=== PATIENT | male | born 1960 | race Caucasian/White ===

== ENCOUNTER 2024-06-09 06:29 | Day surgery (SDC) | payer MEDICARE, OTHER ==
[~2024-06-09] VITALS: Ht 170.2 cm; Wt 85.9 kg
[2024-06-09] MEDS ORDERED: SODIUM CHLORIDE 0.9% 1,000 ML ONE (07:44)
[2024-06-09] MEDS: SODIUM CHLORIDE 0.9% 1,000 ML IV ONE (08:43)
[2024-06-09] MEDS ORDERED: MIDAZOLAM HCL 2 MG/2 ML VIAL ONE (08:59)
[2024-06-09] MEDS ORDERED: FentaNYL CITRATE PF 100 MCG/2 ML VIAL ONE (09:01)
[2024-06-09 09:45] VITALS: PULSE 70; RESP 16; O2SAT 99
[2024-06-09] MEDS ORDERED: MethylPREDNISolone SOD SUCC 125 MG/2 ML VIAL ONE (10:15)
[2024-06-09] MEDS: MethylPREDNISolone SOD SUCC 125 MG/2 ML VIAL IVP ONE (10:24)
[2024-06-09] MEDS ORDERED: LIDOCAINE 4% 50 ML SOLUTION ONE (12:00)
[2024-06-09] MEDS ORDERED: BENZOCAINE 20% 50 MCG/SPRAY 57 GM ONE (12:00)
[2024-06-09] MEDS ORDERED: LIDOCAINE 2% 11 ML JELLY ONE (12:00)
== END 2024-06-09 13:30 | disposition home or self-care (01) ==
LOC: SURGERY 06:29
PROVIDERS: ATTEND Internal Medicine Critical Care Medicine
DX: R05.3 Chronic cough (principal); R06.2 Wheezing; R49.0 Dysphonia; R04.2 Hemoptysis; R06.1 Stridor; B37.0 Candidal stomatitis; R60.0 Localized edema; I49.3 Ventricular premature depolarization; R94.31 Abnormal electrocardiogram [ECG] [EKG]; J98.09 Other diseases of bronchus, not elsewhere classified; J84.10 Pulmonary fibrosis, unspecified; J98.8 Other specified respiratory disorders; Z79.899 Other long term (current) drug therapy; Z98.890 Other specified postprocedural states
CPT/HCPCS: 31623; 87206; 87101; 87220; 87070; 88108; 93005; 31624; 71045; 87015; J3010; J2250; J2919; J7030; Z7610